=== PATIENT | female | born 1935 | race Caucasian/White ===

== ENCOUNTER 2017-05-18 08:54 | Day surgery (SDC) | payer OTHER ==
[2017-05-18] MEDS ORDERED: diphenhydrAMINE 25 MG CAP PO ONE ×2 (09:03→09:39)
[2017-05-18] MEDS ORDERED: FAMOTIDINE 20 MG TAB PO ONE (09:03)
[2017-05-18] MEDS ORDERED: NS 1,000 ML IV ONE (09:03)
[2017-05-18] MEDS ORDERED: DIAZEPAM 5 MG TAB PO ONE (09:03)
[2017-05-18] MEDS ORDERED: ASPIRIN EC 325 MG TAB PO ONE ×2 (09:03→09:39)
--- NOTE | 2017-05-18 09:32 | CPEKG ---
Heart Rate: 73 RR Interval: 822 QRSD Interval: 144 QT Interval: 504 QTC Interval: 556 QRS [place]: 91 T Wave [place]: 263 EKG Severity - ABNORMAL ECG - EKG Impression: AFIB/FLUT AND V-PACED COMPLEXES EKG Impression: NONSPECIFIC INTRAVENTRICULAR CONDUCTION DELAY EKG Impression: NONSPECIFIC ST DEPRESSION EKG Impression: PREMATURE VENTICULAR CONTRACTIONS Electronically Signed By: Vickie Jung 18-May-2017 11:56:36
[2017-05-18] MEDS ORDERED: FAMOTIDINE 20 MG TAB ONE (09:39)
[2017-05-18] MEDS ORDERED: DIAZEPAM 5 MG TAB ONE (09:40)
[2017-05-18 09:46] LABS: % IMMATURE GRANULYOCYTES 0.2 % (0.0-1.1); ABSOLUTE IMMATURE GRANULOCYTES 0.02 10^3/uL (0.00-0.10); ADD DIFF? NO; ADD MORPH? NO; ADD SCAN? NO; ATYPICAL LYMPHOCYTE FLAG 0 (0-99); FRAGMENT RBC FLAG 0 (0-99); HEMOGLOBIN 14.1 g/dL (12.6-16.3); LEFT SHIFT FLG 0 (0-99); LIPEMIA HEMOLYSIS FLAG 80 (0-99); MEAN CELL HEMOGLOBIN 29.8 pg (27.9-34.1); MEAN CELL HEMOGLOBIN CONCENTR. 33.6 g/dL (32.4-36.7); MEAN CELL VOLUME 88.8 fL (81.5-99.8); MEAN PLATELET VOLUME 11.6 fL (8.7-11.7); PLATELET CLUMPS FLAG 10 (0-99); PLATELET COUNT 163 10^3/uL (150-400); RED BLOOD CELL COUNT 4.73 10^6/uL (4.18-5.33); RED CELL DISTRIBUTION WIDTH 14.2 % (11.5-15.2)
[2017-05-18 09:56] LABS: INR 1.23 (0.83-1.16); PROTIME(PATIENT) 15.5 SEC (12.0-15.0)
[2017-05-18 10:02] LABS: ANION GAP 12 mEq/L (8-16); CALCIUM 10.2 mg/dL (8.5-10.4); CARBON DIOXIDE 27 mEq/l (22-31); CHLORIDE 95 mEq/L (97-110); CHOLESTEROL 118 mg/dL (140-220); CHOLESTEROL/HDL RATIO 2.41 RATIO (1.00-4.44); CREATININE 1.2 mg/dL (0.6-1.0); GLOMERULAR FILTRATION RATE 43; GLUCOSE 204 mg/dL (70-100); HIGH DENSITY LIPOPROTEIN 49 mg/dL (40-85); LDL/HDL RATIO 0.86 RATIO (1.00-3.22); LOW DENSITY LIPOPROTEIN 42 mg/dL (80-100); MAGNESIUM 2.2 mg/dL (1.6-2.3); NON-HIGH DENSITY LIPOPROTEIN 69 mg/dL (90-129); POTASSIUM 3.6 mEq/L (3.5-5.2); SODIUM 134 mEq/L (134-144); TRIGLYCERIDE 137 mg/dL (35-135); VERY LOW DENSITY LIPOPROTEINS 27 mg/dL (8-25)
--- NOTE | 2017-05-18 10:07 | PDHPUP ---
History & Physical Update H&P update statement: This history and physical update is based on an assessment of the patient which was completed after admission or registration (within 24 hours), but prior to the surgery/procedure. H&P update: H&P reviewed & patient examined, no change in patient's condition since H&P completed
--- NOTE | 2017-05-18 10:09 | PDPROPOC ---
Sedation Plan of Care Sedation Plan of Care: vital signs stable, mental status noted, patient educated of risks, benefits, alternatives, patient can tolerate sedation ASA Classification: ASA 3 Planned drugs: fentanyl, midazolam Mallampati Score: Class 1 Mallampati Reference Image: Patient passed 3-3-2 rule?: Yes
[2017-05-18] MEDS ORDERED: fentaNYL 100 MCG/2 ML INJ ONE (11:20)
[2017-05-18] MEDS ORDERED: IOPAMIDOL (ISOVUE-370) 150 ML BTL IV ONE (11:20)
[2017-05-18] MEDS ORDERED: MIDAZOLAM 2 MG/2 ML VIAL ONE (11:20)
[2017-05-18] MEDS ORDERED: LIDOCAINE 1% 300 MG/30 ML SDV ONE ×2 (11:20→11:33)
[2017-05-18] MEDS ORDERED: HYDROCODONE/APAP 5/325 TAB PO PRN (13:06)
[2017-05-18] MEDS ORDERED: ONDANSETRON 4 MG/2 ML VIAL IVP PRN (13:06)
[2017-05-18] MEDS ORDERED: NITROGLYCERIN 0.4 MG BTL SL PRN (13:06)
[2017-05-18] MEDS ORDERED: ATROPINE SULFATE 1 MG/10 ML SYR IVP PRN (13:06)
[2017-05-18] MEDS ORDERED: OXYCODONE/APAP 5/325 TAB PO PRN (13:06)
[2017-05-18] MEDS ORDERED: NS 1,000 ML IV SCH (13:15)
[2017-05-18 16:46] LABS: COLOR YELLOW; LEUKOCYTE ESTERASE,URINE 3+ (NEGATIVE); NITRITE,URINE POSITIVE (NEGATIVE)
[2017-05-18 16:51] LABS: WBC,URINE 50-182 /hpf (0-3)
== END 2017-05-18 18:30 | disposition home or self-care (01) ==
LOC: FCATH 08:54
PROVIDERS: ATTEND Internal Medicine
DX: I25.10 Atherosclerotic heart disease of native coronary artery without angina pectoris (principal); I50.32 Chronic diastolic (congestive) heart failure; I11.0 Hypertensive heart disease with heart failure; I48.2 Chronic atrial fibrillation; E78.5 Hyperlipidemia, unspecified; G47.33 Obstructive sleep apnea (adult) (pediatric); E11.9 Type 2 diabetes mellitus without complications; Z79.01 Long term (current) use of anticoagulants; Z95.5 Presence of coronary angioplasty implant and graft; Z95.0 Presence of cardiac pacemaker
CPT/HCPCS: 71020; 78580; 93005; 93460; 93464; A9540; J0461; J1644; J2250; J3010; Q9967

== ENCOUNTER → 2017-06-06 | Day surgery (SDC) | payer OTHER ==
[~2017-06-06] MED LIST: BACITRACIN IRRIGATION/NS 50,000 UNITS/1,000 ML BTL IRR ONE; BUPIVACAINE 0.5% 30 ML SDV ONE; DIAZEPAM 5 MG TAB PO ONE; LIDOCAINE 1% 300 MG/30 ML SDV ONE; MIDAZOLAM 2 MG/2 ML VIAL ONE; NS 1,000 ML IV ONE; ceFAZolin 2 GM/DEXTROSE 100 ML IV ONE; diphenhydrAMINE 25 MG CAP PO ONE; fentaNYL 100 MCG/2 ML INJ ONE
--- NOTE | 2017-06-06 12:47 | CPEKG ---
Heart Rate: 125 RR Interval: 480 QRSD Interval: 132 QTC Interval: 0 QRS [place]: 85 EKG Severity - ABNORMAL ECG - EKG Impression: AFIB/FLUT AND V-PACED COMPLEXES EKG Impression: NONSPECIFIC INTRAVENTRICULAR CONDUCTION DELAY EKG Impression: PVCs NOTED INTERMITTENTLY Electronically Signed By: Clinton Oconnell 10-Jun-2017 09:14:29
[2017-06-06 13:02] LABS: INR 1.59 (0.83-1.16)
[2017-06-06 13:03] LABS: ANION GAP 12 mEq/L (8-16); CALCIUM 10.1 mg/dL (8.5-10.4); CARBON DIOXIDE 25 mEq/l (22-31); CHLORIDE 100 mEq/L (97-110); CREATININE 1.1 mg/dL (0.6-1.0); GLOMERULAR FILTRATION RATE 48; GLUCOSE 192 mg/dL (70-100); POTASSIUM 3.7 mEq/L (3.5-5.2); SODIUM 137 mEq/L (134-144)
--- NOTE | 2017-06-06 13:16 | PDPROPOC ---
Sedation Plan of Care Sedation Plan of Care: vital signs stable, mental status noted, patient educated of risks, benefits, alternatives, patient can tolerate sedation ASA Classification: ASA 2 Planned drugs: fentanyl, midazolam Mallampati Score: Class 2 Mallampati Reference Image: Patient passed 3-3-2 rule?: Yes
[2017-06-06 13:19] LABS: % IMMATURE GRANULYOCYTES 0.4 % (0.0-1.1); ABSOLUTE IMMATURE GRANULOCYTES 0.03 10^3/uL (0.00-0.10); ADD DIFF? NO; ADD MORPH? NO; ADD SCAN? NO; ATYPICAL LYMPHOCYTE FLAG 0 (0-99); FRAGMENT RBC FLAG 0 (0-99); HEMATOCRIT 42.4 % (38.0-47.0); HEMOGLOBIN 14.3 g/dL (12.6-16.3); LEFT SHIFT FLG 0 (0-99); LIPEMIA HEMOLYSIS FLAG 80 (0-99); MEAN CELL HEMOGLOBIN 30.4 pg (27.9-34.1); MEAN CELL HEMOGLOBIN CONCENTR. 33.7 g/dL (32.4-36.7); MEAN CELL VOLUME 90.2 fL (81.5-99.8); MEAN PLATELET VOLUME 11.7 fL (8.7-11.7); PLATELET CLUMPS FLAG 10 (0-99); PLATELET COUNT 173 10^3/uL (150-400); RED CELL DISTRIBUTION WIDTH 14.8 % (11.5-15.2)
--- NOTE | 2017-06-06 15:05 | CPEKG ---
Heart Rate: 79 RR Interval: 759 QRSD Interval: 140 QT Interval: 456 QTC Interval: 523 QRS [place]: 88 T Wave [place]: 256 EKG Severity - ABNORMAL ECG - EKG Impression: AFIB/FLUT AND V-PACED COMPLEXES EKG Impression: NONSPECIFIC ST DEPRESSION, ANT-LAT LEADS EKG Impression: PVCs NOTED (VENTRICULAR TRIGEMINY) Electronically Signed By: Clinton Oconnell 10-Jun-2017 09:15:08
--- NOTE | 2017-06-06 15:18 | CPIP ---
[f rep st] INVASIVE CARDIAC PROCEDURE DATE OF PROCEDURE: 06/06/2017 INDICATIONS: The patient is a pleasant 81-year-old female. She has a history of atrial fibrillation with previous AV node ablation. She has therapeutic complete heart block and a dual-chamber pacemak er which is in place currently at elective replacement indicators. PROCEDURE PERFORMED: Pacemaker generator change. TECHNIQUE: Following informed consent and in the fasting state, the patient was brought to the [facility] catheterization laboratory. Prior to the procedure, prophylactic antibiotics were administered. The left chest was prepped and draped in the usual sterile fashion. A mixture of lidocaine and bupiv acaine was infiltrated into the skin below the left clavicle and using the #10 blade, a 3 cm incision was made. Using blunt dissection, the capsule to the pacemaker was identified which was opened bluntly. The ex isting device was carefully dissected from the surrounding scar tissue and delivered from the pocket. The leads were disconnected. The patient did have an underlying rhythm of about 20 beats per minut e. We individually tested the ventricular lead with excellent capture and sensing. The pocket was i rrigated with antibiotic-containing solution. The device was brought to the field. Both leads were identified by serial number and affixed to the header according to [employer] architect guidelines. The zaheer ce and the redundant portions of both leads were then placed in the pocket. The pocket was then clos ed in 3 layers using 2 layers of interrupted suture with 2-0 and 3-0 Vicryl and finally 3-0 Stratafix for the skin. Steri-Strips and a dry dressing were applied. COMPLICATIONS: None DEVICE INFORMATION: The newly implanted device is a [employer] Advisa MRI compatible device, model A2 DR01, serial number [id number]. The atrial lead is a Medtronic 4076-lead, 45 cm in length, serial nu mber [id number] implanted April 22, 2008. The right ventricular lead Medtronic model #4076, 52 cm l ead, serial number [id number] implanted April 22, 2008. In the ventricle, sensed R waves were 13.3 mV with a capture of 0.5 msec or 0.7 V, and a lead impedan ce of 576 ohms. DISPOSITION: The patient be recovered in the CVC and discharged home later today. /[id number]/MODL
== END | disposition home or self-care (01) ==
LOC: FCATH 11:56
PROVIDERS: ATTEND Internal Medicine Cardiovascular Disease
PROC: 0JPT0PZ Removal of Cardiac Rhythm Related Device from Trunk Subcutaneous Tissue and Fascia, Open Approach (ICD-10-PCS; principal; 2017-06-06)
PROC: 0JH607Z Insertion of Cardiac Resynchronization Pacemaker Pulse Generator into Chest Subcutaneous Tissue and Fascia, Open Approach (ICD-10-PCS; principal; 2017-06-06)
DX: Z45.010 Encounter for checking and testing of cardiac pacemaker pulse generator [battery] (principal); I44.2 Atrioventricular block, complete; I48.2 Chronic atrial fibrillation; I25.10 Atherosclerotic heart disease of native coronary artery without angina pectoris; I50.32 Chronic diastolic (congestive) heart failure; Z95.5 Presence of coronary angioplasty implant and graft; I11.0 Hypertensive heart disease with heart failure; E78.5 Hyperlipidemia, unspecified; G47.33 Obstructive sleep apnea (adult) (pediatric); E11.9 Type 2 diabetes mellitus without complications; Z79.01 Long term (current) use of anticoagulants
CPT/HCPCS: C1785; J0690; J2250; J3010